=== PATIENT | male | born 1950 | race Caucasian/White ===

== ENCOUNTER → 2020-10-11 | Outpatient (CLI) | payer MEDICARE, OTHER | LOC: HEART 5 07:24 | DX: I20.8 Other forms of angina pectoris (principal); R94.31 Abnormal electrocardiogram [ECG] [EKG] | CPT/HCPCS: 78452; A9502; J2785 ==

== ENCOUNTER → 2020-11-10 | Outpatient (CLI) | payer MEDICARE, OTHER | LOC: KOH-I 10:39 | DX: J32.9 Chronic sinusitis, unspecified (principal); R51.9 Headache, unspecified | CPT/HCPCS: 70486 ==